=== PATIENT | female | born 1985 | race American Indian/Alaskan Native ===

== ENCOUNTER 2017-12-03 15:00 | Day surgery (SDC) | payer SELFPAY ==
[2017-12-03 08:37] LABS: Basophils % (Auto) 0.3 % (0.0-1.8); Eosinophils % (Auto) 0.1 % (0.0-4.3); Hematocrit 38.9 % (30.3-42.9); Lymphocytes # (Auto) 1.1 K/mm3 (1.2-5.4); Lymphocytes % (Auto) 8.8 % (13.4-35.0); Mean Corpuscular HGB Conc 33 % (30-34); Mean Corpuscular Hemoglobin 31 pg (28-32); Mean Corpuscular Volume 94 fl (79-97); Monocytes # (Auto) 0.2 K/mm3 (0.0-0.8); Monocytes % (Auto) 1.2 % (0.0-7.3); Platelet Count 170 K/mm3 (140-440); Red Blood Count 4.16 M/mm3 (3.65-5.03); Red Cell Distribution Width 14.1 % (13.2-15.2)
--- NOTE | 2017-12-03 08:41 | Emergency Department Report ---
ED Female HPI - General Chief complaint: Vaginal Bleeding Stated complaint: EXCESSIVE BLEEDING Time Seen by Provider: 12/03/17 08:38 Source: patient Mode of arrival: Ambulatory Limitations: Language Barrier - History of Present Illness Initial comments: psychiatric arnp: [id number] This is a 32-year-old female who is 3, para 2, last menstrual period is July 31. Her adobe block maker is with the [facility]. Patient reports that she was recently diagnosed with demise, and prescribed Cytotec. She took the Cytotec as directed. She reports crampy lower abdominal discomfort, vaginal bleeding, believes that she has used a box of pads in the past day or 2. She describes lightheadedness and generalized weakness. She denies urinary symptoms. She endorses vaginal bleeding. Her symptoms are constant. They worsened with physical exertion and decreased with rest. They do not radiate anywhere. MD Complaint: vaginal bleeding, pelvic pain -: Gradual Radiation: suprapubic Severity: moderate Quality: cramping, other Improves with: other Worsens with: other Are you Now?: Yes Associated Symptoms: vaginal bleeding, abdominal pain, nausea/vomiting, weakness. denies: vaginal discharge, fever/chills, headaches, loss of appetite , dysuria, hematuria, rash, seizure - Related Data Sexually active: Yes Previous Rx's Medication Instructions Recorded Last Taken Type Acetaminophen [Tylenol Arthritis] 650 mg PO Q6HR PRN #30 tablet.er 12/03/17 Unknown Rx Ibuprofen [Motrin] 600 mg PO Q8H PRN #30 tablet 12/03/17 Unknown Rx Ondansetron [Zofran Odt] 4 mg PO Q8HR PRN #20 tab.rapdis 12/03/17 Unknown Rx Allergies Allergy/AdvReac Type Severity Reaction Status Date / Time No Known Allergies Allergy Unverified 12/03/17 07:53 ED Review of Systems ROS: Stated complaint: EXCESSIVE BLEEDING Other details as noted in HPI Comment: All other systems reviewed and negative ED Past Medical Hx - Past Medical History Previous Medical History?: No - Surgical History Additional Surgical History: C/S - Social History Smoking Status: Never Smoker Substance Use Type: None - Medications Home Medications: Home Medications Medication Instructions Recorded Confirmed Last Taken Type Acetaminophen [Tylenol Arthritis] 650 mg PO Q6HR PRN #30 tablet.er 12/03/17 Unknown Rx Ibuprofen [Motrin] 600 mg PO Q8H PRN #30 tablet 12/03/17 Unknown Rx Ondansetron [Zofran Odt] 4 mg PO Q8HR PRN #20 tab.rapdis 12/03/17 Unknown Rx ED Physical Exam - General Limitations: Language Barrier General appearance: alert, in no apparent distress - Head Head exam: Present: atraumatic, normocephalic - Eye Eye exam: Present: normal appearance, EOMI. Absent: nystagmus - ENT ENT exam: Present: normal exam, normal orophraynx, mucous membranes moist, normal external ear exam - Neck Neck exam: Present: normal inspection, full ROM. Absent: tenderness, meningismus - Respiratory Respiratory exam: Present: normal lung sounds bilaterally. Absent: respiratory distress - Cardiovascular Cardiovascular Exam: Present: normal rhythm, tachycardia, normal heart sounds. Absent: systolic murmur, diastolic murmur, rubs, gallop - GI/Abdominal GI/Abdominal exam: Present: soft, tenderness (there is suprapubic tenderness. There is no right lower quadrant tenderness, rebound or guarding.), normal bowel sounds. Absent: distended, guarding, rebound, rigid - External exam: Present: normal external exam Speculum exam: Present: normal speculum exam, vaginal bleeding, tissue, other ( escorted by nurse Ernestine Segura) - Extremities Exam Extremities exam: Present: normal inspection, full ROM, normal capillary refill , other (2+ pulses noted in the bilateral upper, lower extremities. Compartments soft. No long bony tenderness. The pelvis is stable.). Absent: tenderness, pedal edema, joint swelling, calf tenderness - Back Exam Back exam: Present: normal inspection, full ROM. Absent: tenderness, CVA tenderness (R), paraspinal tenderness, vertebral tenderness - Neurological Exam Neurological exam: Present: alert, normal gait, other (Extraocular movements intact. Tongue midline. No facial droop. Facial sensation intact to light touch in the V1, V2, V3 distribution bilaterally. 5 and 5 strength in 4 extremities.. Sensation is intact to light touch in 4 extremities.). Absent: motor sensory deficit - Psychiatric Psychiatric exam: Present: anxious - Skin Skin exam: Present: warm, dry, intact, normal color. Absent: rash ED Course Vital Signs 12/03/17 12/03/17 07:53 11:08 Temperature 97.9 F Pulse Rate 124 H Pulse Rate [ 88 Lying] Respiratory 16 Rate Blood Pressure 126/75 Blood Pressure 98/59 [Lying] O2 Sat by Pulse 99 Oximetry ED Medical Decision Making - Lab Data Result diagrams: 12/03/17 08:06 12/03/17 09:17 Vital Signs 12/03/17 12/03/17 07:53 11:08 Temperature 97.9 F Pulse Rate 124 H Pulse Rate [ 88 Lying] Respiratory 16 Rate Blood Pressure 126/75 Blood Pressure 98/59 [Lying] O2 Sat by Pulse 99 Oximetry Lab Results 12/03/17 12/03/17 12/03/17 Range/Units 08:06 08:06 08:06 WBC 12.5 H (4.5-11.0) K/mm3 RBC 4.16 (3.65-5.03) M/mm3 Hgb 13.0 (10.1-14.3) gm/dl Hct 38.9 (30.3-42.9) % MCV 94 (79-97) fl MCH 31 (28-32) pg MCHC 33 (30-34) % RDW 14.1 (13.2-15.2) % Plt Count 170 (140-440) K/mm3 Lymph % (Auto) 8.8 L (13.4-35.0) % [place] % (Auto) 1.2 (0.0-7.3) % Eos % (Auto) 0.1 (0.0-4.3) % Baso % (Auto) 0.3 (0.0-1.8) % Lymph # 1.1 L (1.2-5.4) K/mm3 [place] # 0.2 (0.0-0.8) K/mm3 Eos # 0.0 (0.0-0.4) K/mm3 Baso # 0.0 (0.0-0.1) K/mm3 Seg Neutrophils % 89.6 H (40.0-70.0) % Seg Neutrophils # 11.2 H (1.8-7.7) K/mm3 PT (12.2-14.9) Sec. INR (0.87-1.13) Sodium (137-145) mmol/L Potassium (3.6-5.0) mmol/L Chloride (98-107) mmol/L Carbon Dioxide (22-30) mmol/L Anion Gap mmol/L BUN (7-17) mg/dL Creatinine (0.7-1.2) mg/dL Estimated GFR ml/min BUN/Creatinine Ratio % Glucose (65-100) mg/dL Calcium (8.4-10.2) mg/dL HCG, Quant 14307 H (0-4) mIU/mL Blood Type O POSITIVE Antibody Screen Negative 12/03/17 12/03/17 Range/Units 09:17 09:17 WBC (4.5-11.0) K/mm3 RBC (3.65-5.03) M/mm3 Hgb (10.1-14.3) gm/dl Hct (30.3-42.9) % MCV (79-97) fl MCH (28-32) pg MCHC (30-34) % RDW (13.2-15.2) % Plt Count (140-440) K/mm3 Lymph % (Auto) (13.4-35.0) % [place] % (Auto) (0.0-7.3) % Eos % (Auto) (0.0-4.3) % Baso % (Auto) (0.0-1.8) % Lymph # (1.2-5.4) K/mm3 [place] # (0.0-0.8) K/mm3 Eos # (0.0-0.4) K/mm3 Baso # (0.0-0.1) K/mm3 Seg Neutrophils % (40.0-70.0) % Seg Neutrophils # (1.8-7.7) K/mm3 PT 14.8 (12.2-14.9) Sec. INR 1.10 (0.87-1.13) Sodium 133 L (137-145) mmol/L Potassium 4.5 (3.6-5.0) mmol/L Chloride 98.7 (98-107) mmol/L Carbon Dioxide 17 L (22-30) mmol/L Anion Gap 22 mmol/L BUN 14 (7-17) mg/dL Creatinine 0.4 L (0.7-1.2) mg/dL Estimated GFR > 60 ml/min BUN/Creatinine Ratio 35 % Glucose 133 H (65-100) mg/dL Calcium 8.6 (8.4-10.2) mg/dL HCG, Quant (0-4) mIU/mL Blood Type Antibody Screen - EKG Data -: EKG Interpreted by Sd EKG shows normal: sinus rhythm, axis, QRS complexes, ST-T waves - EKG Data When compared to previous EKG there are: previous EKG unavailable Interpretation: normal EKG - Radiology Data Radiology results: report reviewed, image reviewed Referring Physician: KRISTIE WILL Patient Name: CALOS CARMEN Date of : 1985 Sex: Female Report Date: 2017-12-03 Report Status: Finalized Findings [facility] [address] [place] [address] Ultrasound Report Signed Patient: CALOS CARMEN MR#: [id number] : 1985 Acct:[id number] Age/Sex: 32 / F ADM Date: 12/03/17 Loc: ED Attending Dr: Ordering Physician: KRISTIE WILL MD Date of Service: 12/03/17 Procedure(s): US OB <= 14 weeks fetus Accession Number(s): [id number] cc: KRISTIE WILL MD ULTRASOUND OB LESS THAN 14 WEEKS FETUS History: Vaginal bleeding Findings: Transabdominal imaging was performed. The uterus measures 13 x 5 x 7 cm. No obvious uterine fibroids. No intrauterine gestational sac or heart tones could be demonstrated. The endometrium is thickened up to 2 cm and contains debris and fluid. The right ovary is unremarkable measuring 4.3 x 1.8 x 3.4 cm. The left ovary measures 3.3 x 1.6 x 1.7 cm and contains a 2.2 cm cyst. No pelvic fluid collection. Impression: No intrauterine is demonstrated. The endometrial stripe is complex and thickened up to 2 cm. Spontaneous with retained products of conception should be considered. Transcribed By: TTR Dictated By: KAREN BRASWELL JR, MD Electronically Authenticated By: KAREN BRASWELL JR, MD Signed Date/Time: 12/03/17 1102 - Medical Decision Making Differential diagnosis, including but not limited to: Inevitable miscarriage, demise, orthostasis, dehydration Assessment and plan: 32-year-old female with demise. On her gynecologic examination, she has clots and there is a sac being extruded from the cervix. Patient is already taking Cytotec. Hemoglobin, hematocrit within appropriate limits, and type and screen is Rh+. However, the patient is very tachycardic and orthostatic. Case is discussed with adobe block maker, Dr. Jimbo Hernandez, he is going to evaluate the patient for probable dilatation and curettage. Critical care attestation.: If time is entered above; I have spent that time in minutes in the direct care of this critically ill patient, excluding procedure time. ED Disposition Clinical Impression: Miscarriage Disposition: DC-09 OP ADMIT IP TO THIS HOSP Is pt being admited?: Yes Does the pt Need Aspirin: No Condition: Stable Instructions: Spontaneous Miscarriage (ED) Additional Instructions: Rest, and avoid heavy lifting. Avoid strenuous physical activities. Take the pain medication, nausea medication as directed. To not have sex until cleared by a adobe block maker. Follow-up with a adobe block maker within the next week. Patient is currently experiencing normal expected symptoms of a miscarriage. Return to the ER right away with new pain, worsened pain, migration of pain, bleeding more than 2 pads soaked per hour, lightheadedness, loss of consciousness, severe pain. Descanse y evite levantar objetos pesados. Evite actividades fsicas extenuantes. [place] el medicamento para el dolor, los medicamentos para las nuseas segn las indicaciones. No tener relaciones sexuales hasta que sea aprobado por un gineclogo. [place] un seguimiento con un gineclogo dentro de la prxima semana. El paciente actualmente est experimentando los sntomas normales esperados de un aborto espontneo. Regrese a la modesta de urgencias de inmediato con dolor nuevo, dolor empeorado, migracin de dolor, sangrado de ms de 2 compresas empapadas por hora, aturdimiento, prdida del conocimiento, dolor intenso. Prescriptions: Acetaminophen [Tylenol Arthritis] 650 mg PO Q6HR PRN #30 tablet.er PRN Reason: Pain Ibuprofen [Motrin] 600 mg PO Q8H PRN #30 tablet PRN Reason: Pain Ondansetron [Zofran Odt] 4 mg PO Q8HR PRN #20 tab.rapdis PRN Reason: Nausea Referrals: [facility]IMARY [facility]ARE, [Primary Care Provider] - 3-5 Days [facility] [Provider Group] - 3-5 Days [facility] [Provider Group] - 3-5 Days [facility] [Provider Group] - 3-5 Days
[2017-12-03 09:53] LABS: BUN/Creatinine Ratio 35; Blood Urea Nitrogen 14 mg/dL (7-17); Calcium 8.6 mg/dL (8.4-10.2); Hemolysis Index 25
[2017-12-03 10:56] LABS: INR 1.1 (0.87-1.13)
--- NOTE | 2017-12-03 11:09 | Ultrasound Report ---
ULTRASOUND OB LESS THAN 14 WEEKS FETUS History: Vaginal bleeding Findings: Transabdominal imaging was performed. The uterus measures 13 x 5 x 7 cm. No obvious uterine fibroids. No intrauterine gestational sac or heart tones could be demonstrated. The endometrium is thickened up to 2 cm and contains debris and fluid. The right ovary is unremarkable measuring 4.3 x 1.8 x 3.4 cm. The left ovary measures 3.3 x 1.6 x 1.7 cm and contains a 2.2 cm cyst. No pelvic fluid collection. Impression: No intrauterine is demonstrated. The endometrial stripe is complex and thickened up to 2 cm. Spontaneous with retained products of conception should be considered.
--- NOTE | 2017-12-03 13:08 | Short Stay Summary ---
Short Stay Documentation Date of service: 12/03/17 Narrative H&P: Pt is a 32-year-old female LMP 07/31/17 was recently diagnosed with demise, and prescribed Cytotec at [facility]. She took the Cytotec as directed and reported crampy lower abdominal pain, vaginal bleeding, lightheadedness and generalized weakness which worsened with physical exertion and decreased with rest. Pelvic u/s showed The uterus measures 13 x 5 x 7 cm. No obvious uterine fibroids. No intrauterine gestational sac or heart tones could be demonstrated. The endometrium is thickened up to 2 cm and contains debris and fluid. She is currently bleeding and will therefore be admitted for a D&C due to Incomplete . - History Principal diagnosis: Incomplete H&P: obtained from office Past Medical History: No medical history Past Surgical History: Social history: no significant social history, - Allergies and Medications Current Medications: Allergies No Known Allergies Allergy (Unverified 12/03/17 07:53) Home Medications Medication Instructions Recorded Confirmed Last Taken Type Acetaminophen [Tylenol Arthritis] 650 mg PO Q6HR PRN #30 tablet.er 12/03/17 Unknown Rx Ibuprofen [Motrin] 600 mg PO Q8H PRN #30 tablet 12/03/17 Unknown Rx Ondansetron [Zofran Odt] 4 mg PO Q8HR PRN #20 tab.rapdis 12/03/17 Unknown Rx - Physical exam General appearance: mild distress Integumentary: no rash HEENT: Atraumatic Lungs: Clear to auscultation Breasts: deferred Heart: Regular rate Gastrointestinal: normal Female Genitourinary: deferred Rectal Exam: deferred Extremities: no ischemia Neurological: Normal gait, Normal speech - Brief post op/procedure progress note Date of procedure: 12/03/17 Pre-op diagnosis: Incomplete Post-op diagnosis: same Procedure: D&C Anesthesia: MAC Findings: A 12-14 weeks size uterus with large amounts of POC @ cervical os. Surgeon: KAREN QUINTANA Estimated blood loss: 50-100ml Pathology: list (POC) Specimen disposition: to lab Condition: stable - Hospital course Hospital course: Unremarkable. - Disposition Condition at discharge: Good Disposition: DC- TO HOME OR SELFCARE - Discharge Diagnoses (1) Incomplete Status: Resolved Short Stay Discharge Plan Activity: no restrictions Diet: regular Additional Instructions: Rest, and avoid heavy lifting. Avoid strenuous physical activities. Take the pain medication, nausea medication as directed. To not have sex until cleared by a claim clerk. Follow-up with a claim clerk within the next week. Patient is currently experiencing normal expected symptoms of a miscarriage. Return to the ER right away with new pain, worsened pain, migration of pain, bleeding more than 2 pads soaked per hour, lightheadedness, loss of consciousness, severe pain. Descanse y evite levantar objetos pesados. Evite actividades fsicas extenuantes. [place] el medicamento para el dolor, los medicamentos para las nuseas segn las indicaciones. No tener relaciones sexuales hasta que sea aprobado por un gineclogo. [place] un seguimiento con un gineclogo dentro de la prxima semana. El paciente actualmente est experimentando los sntomas normales esperados de un aborto espontneo. Regrese a la modesta de urgencias de inmediato con dolor nuevo, dolor empeorado, migracin de dolor, sangrado de ms de 2 compresas empapadas por hora, aturdimiento, prdida del conocimiento, dolor intenso. Follow up with: [facility] [Provider Group] - 3-5 Days [facility], [Primary Care Provider] - 3-5 Days Prescriptions: Acetaminophen [Tylenol Arthritis] 650 mg PO Q6HR PRN #30 tablet.er PRN Reason: Pain Doxycycline [Vibramycin CAP] 100 mg PO Q12HR #14 capsule Ibuprofen [Motrin] 600 mg PO Q8H PRN #30 tablet PRN Reason: Pain Methylergonovine [Methergine] 0.2 mg PO Q8HR #6 tablet Ondansetron [Zofran Odt] 4 mg PO Q8HR PRN #20 tab.rapdis PRN Reason: Nausea
[~2017-12-03 15:00] MED LIST: ANCEF/STERILE WATER 2 GM/20 ML 2 GM/20 ML SYRINGE IV NR; DEMEROL IV PRN; DILAUDID IV PRN; LACTATED RINGERS 1,000 ML IV SCH; NACL 0.9% 1000 ML 2,000 ML IV ONE; NACL 0.9% 1000 ML 2,000 ML ONE; SUBLIMAZE IV ONE; TORADOL IV PRN; VERSED IV NR; XYLOCAINE MPF 2% ONE; ZOFRAN IV ONE; ZOFRAN IV PRN
[2017-12-03] MEDS ORDERED: SUBLIMAZE ONE (15:01)
[2017-12-03] MEDS ORDERED: DIPRIVAN 10 MG/ML IV ONE (15:01)
--- NOTE | 2017-12-03 15:09 | Anesthesia Day of Surgery ---
Anesthesia Day of Surgery - Day of Surgery Patient Examined: Yes Patient H&P Reviewed: Yes Patient is NPO: Yes
--- NOTE | 2017-12-03 15:10 | Anesthesia Consultation ---
Anesthesia Consult and Med Hx Date of service: 12/03/17 - Airway Anesthetic Teeth Evaluation: Good ROM Head & Neck: Adequate Mental/Hyoid Distance: Adequate Mallampati Class: Class II Intubation Access Assessment: Probably Good - Pulmonary Exam CTA: Yes - Cardiac Exam Cardiac Exam: RRR - Pre-Operative Health Status ASA Pre-Surgery Classification: ASA2 Proposed Anesthetic Plan: General (GERD controlled)
[2017-12-03] MEDS ORDERED: LACTATED RINGERS 1,000 ML ONE (18:30)
[2017-12-03] MEDS ORDERED: ANCEF ONE ×2 (18:39)
[2017-12-03] MEDS ORDERED: ZOFRAN ONE (18:48)
[2017-12-03] MEDS ORDERED: TORADOL ONE (18:49)
--- NOTE | 2017-12-03 19:14 | Operative Report ---
Operative Report Operative Report: PREOPERATIVE DIAGNOSIS: Incomplete POSTOPERATIVE DIAGNOSIS: Same OPERATIVE PROCEDURE: Dilatation and curettage. SURGEON: Kiko Hernandez MD ANESTHESIA: Gen. mask ANESTHESIOLOGIST: Dr. Hernandes ESTIMATED BLOOD LOSS: 150 mls FINDINGS: A 12-14 week size uterus with a large amounts of products of conception at the cervical os COMPLICATIONS: None COUNTS: Correct x3. PROCEDURE: After the patient was correctly identified as the patient, and after general anesthesia was administered, the patient was prepped and draped in the usual sterile fashion and placed in dorsal lithotomy position. First, the bladder was emptied using a straight catheter. Next, a speculum was placed in the vaginal vault and a large gestational sac was seen at the cervical os. It was grasped using ring forceps and sent to pathology. The anterior lip of the cervix was grasped using the ring forceps and the uterus was sounded to 12 cm. A 12 mm vaccurette was used to suction blood and products of conception from the uterine cavity. After all the products of conception were removed, the procedure was considered complete. All instruments were removed from the vagina. The patient tolerated the procedure well and was transferred to the recovery room in stable condition.
[2017-12-03] MEDS ORDERED: NACL 0.9% 1000 ML 1,000 ML ONE (20:20)
[2017-12-03 20:48] VITALS: BP 94/41
== END 2017-12-03 20:20 | disposition home or self-care (01) ==
LOC: OR 15:00
PROVIDERS: ATTEND Obstetrics & Gynecology
DX: O03.4 Incomplete spontaneous abortion without complication (principal); Z3A.12 12 weeks gestation of pregnancy
CPT/HCPCS: 36415; 59812; 76801; 80048; 84702; 85025; 85610; 86850; 86900; 86901; 88305; 93005; 93010; 96361; 96374; 96375; 99284; J0690; J1885; J2405; J2704; J3010; J7030; J7120

== ENCOUNTER 2020-06-25 08:16 | Emergency (ER) | payer SELFPAY ==
[2020-06-25 09:16] LABS: Hemoglobin 14.3 gm/dl (10.1-14.3); Mean Corpuscular HGB Conc 34 % (30-34); Mean Corpuscular Volume 88 fl (79-97); Platelet Count 146 K/mm3 (140-440); Red Blood Count 4.75 M/mm3 (3.65-5.03); Red Cell Distribution Width 15.4 % (13.2-15.2)
[2020-06-25 09:33] LABS: Blood Urea Nitrogen 10 mg/dL (7-17); Calcium 9.1 mg/dL (8.4-10.2); Hemolysis Index 2
[2020-06-25 09:40] LABS: Bilirubin,Urine NEG (Negative); Blood,Urine MOD (Negative); Color,Urine Yellow (Yellow); Mucus,Urine FEW /HPF; Urobilinogen,Urine < 2.0 mg/dL (<2.0)
[2020-06-25 09:46] LABS: BUN/Creatinine Ratio 17
--- NOTE | 2020-06-25 10:57 | Emergency Department Report ---
ED HPI - General Chief complaint: Urogenital-Female Stated complaint: PREG WKS ? BLEEDING Time Seen by Provider: 06/25/20 09:54 Source: patient Mode of arrival: Ambulatory Limitations: Language Barrier - History of Present Illness Initial comments: 34-year-old female who is morbid obese presents to the emergency room complaining of vaginal spotting since yesterday. Patient reports she took home test x2 weeks ago and it was positive. Patient is 4 para 2 with 1 miscarriage. Patient states her last miscarriage was 12/02/2017. Last menstrual period was 03/14/2020. Patient admits to nausea no vomiting. She reports this a little bit of abdominal pain. She does admit to a little headache. She denies any dysuria no hematuria. She has not followed up with the PRESSURE TEST OPERATOR. She was followed by [facility] for her prior and delivered here at the hospital. Patient states she is already taking vitamins. She has no known drug allergies. MD Complaint: vaginal bleeding Onset/Timin -: days(s) Location: pelvis Severity scale (0 -10): 1 Consistency: intermittent Improves with: none Worsens with: none Associated symptoms: nausea/vomiting (Nausea no vomiting), vaginal bleeding (Spotting), headache. denies: vaginal discharge, dysuria, vision changes, malaise, rash, shortness of breath, weakness Vaginal bleeding: light :: Yes Number of weeks : 12 OB History - Current : no complications OB History - Previous Pregnancies: miscarriage [facility]: none - Related Data : 4 Para: 2 Ab: 1 (Miscarriage 12/02/2017) Previous Rx's Medication Instructions Recorded Last Taken Type Acetaminophen [Tylenol Arthritis] 650 mg PO Q6HR PRN #30 tablet.er 12/03/17 Unk nown Rx DOXYCYCLINE Hyclate [Vibramycin 100 mg PO Q12HR #14 capsule 12/03/17 Unknown Rx CAP] Ibuprofen [Motrin] 600 mg PO Q8H PRN #30 tablet 12/03/17 Unknown Rx Methylergonovine [Methergine] 0.2 mg PO Q8HR #6 tablet 12/03/17 Unknown Rx Ondansetron [Zofran Odt] 4 mg PO Q8HR PRN #20 tab.rapdis 12/03/17 Unknown Rx Allergies Allergy/AdvReac Type Severity Reaction Status Date / Time No Known Allergies Allergy Verified 06/25/20 08:20 ED Review of Systems ROS: Stated complaint: PREG WKS ? BLEEDING Other details as noted in HPI Comment: All other systems reviewed and negative ED Past Medical Hx - Past Medical History Previous Medical History?: No - Surgical History Past Surgical History?: No Additional Surgical History: C/S - Social History Smoking Status: Never Smoker Substance Use Type: None - Medications Home Medications: Home Medications Medication Instructions Recorded Confirmed Last Taken Type Acetaminophen [Tylenol Arthritis] 650 mg PO Q6HR PRN #30 tablet.er 12/03/17 Unknown Rx DOXYCYCLINE Hyclate [Vibramycin 100 mg PO Q12HR #14 capsule 12/03/17 Unknown Rx CAP] Ibuprofen [Motrin] 600 mg PO Q8H PRN #30 tablet 12/03/17 Unknown Rx Methylergonovine [Methergine] 0.2 mg PO Q8HR #6 tablet 12/03/17 Unknown Rx Ondansetron [Zofran Odt] 4 mg PO Q8HR PRN #20 tab.rapdis 12/03/17 Unknown Rx ED Physical Exam - General Limitations: Language Barrier General appearance: alert, in no apparent distress - Head Head exam: Present: atraumatic, normocephalic - Eye Eye exam: Present: normal appearance - ENT ENT exam: Present: mucous membranes moist - Neck Neck exam: Present: normal inspection - Respiratory Respiratory exam: Present: normal lung sounds bilaterally. Absent: respiratory distress - Cardiovascular Cardiovascular Exam: Present: regular rate, normal rhythm. Absent: systolic murmur, diastolic murmur, rubs, gallop - GI/Abdominal GI/Abdominal exam: Present: soft, normal bowel sounds - Extremities Exam Extremities exam: Present: normal inspection - Back Exam Back exam: Present: normal inspection - Neurological Exam Neurological exam: Present: alert, oriented X3 - Psychiatric Psychiatric exam: Present: normal affect, normal mood - Skin Skin exam: Present: warm, dry, intact, normal color. Absent: rash ED Course Vital Signs 06/25/20 08:19 Temperature 98.1 F Pulse Rate 96 H Respiratory 16 Rate Blood Pressure 147/90 O2 Sat by Pulse 100 Oximetry ED Medical Decision Making - Lab Data Result diagrams: 06/25/20 08:34 06/25/20 08:34 Laboratory Tests 06/25/20 06/25/20 06/25/20 08:34 08:34 08:34 WBC 6.6 RBC 4.75 Hgb 14.3 Hct 42.0 MCV 88 MCH 30 MCHC 34 RDW 15.4 H Plt Count 146 Sodium Potassium Chloride Carbon Dioxide Anion Gap BUN Creatinine Estimated GFR BUN/Creatinine Ratio Glucose Calcium HCG, Quant 39528 H Urine Color Urine Turbidity Urine pH Ur Specific [place] Urine Protein Urine Glucose (UA) Urine Ketones Urine Blood Urine Nitrite Urine Bilirubin Urine Urobilinogen Ur Leukocyte Esterase Urine WBC (Auto) Urine RBC (Auto) U Epithel Cells (Auto) Urine Mucus Blood Type O POSITIVE 06/25/20 06/25/20 08:34 09:02 WBC RBC Hgb Hct MCV MCH MCHC RDW Plt Count Sodium 138 Potassium 4.1 Chloride 102.8 Carbon Dioxide 25 Anion Gap 14 BUN 10 Creatinine 0.6 Estimated GFR > 60 BUN/Creatinine Ratio 17 Glucose 137 H Calcium 9.1 HCG, Quant Urine Color Yellow Urine Turbidity Slightly-cloudy Urine pH 6.0 Ur Specific [place] 1.020 Urine Protein 30 mg/dl Urine Glucose (UA) Neg Urine Ketones Neg Urine Blood Mod Urine Nitrite Neg Urine Bilirubin Neg Urine Urobilinogen < 2.0 Ur Leukocyte Esterase Neg Urine WBC (Auto) 2.0 Urine RBC (Auto) 63.0 U Epithel Cells (Auto) 6.0 Urine Mucus Few Blood Type - Radiology Data Radiology results: report reviewed Patient: CALOS FERRARI MR#: [id number] : 1985 Acct:[id number] Age/Sex: 34 / F ADM Date: 06/25/20 Loc: ED Attending Dr: Ordering Physician: ТАТЬЯНА NIETO Date of Service: 06/25/20 Procedure(s): US OB transvaginal Accession Number(s): [id number] cc: ТАТЬЯНА NIETO ULTRASOUND OBSTETRIC Indication: Vaginal spotting Findings: Transabdominal and transvaginal imaging is performed. There is a gestational sac with pole and yolk sac identified within the uterus. Gestational sac size would correlate to a 7 week 3 day gestation. Corinne-rump length is difficult to measure but appears to be approximately 4.2 mm correlating to a 6 week 1 day gestation. No heart tones are identified. There is a small subchorionic bleed. Right ovary measures 3.2 cm and contains a 1.6 cm solid-appearing nodule which may represent a hemorrhagic cyst. This will need to be followed. The left ovary measures 2.7 cm and is unremarkable. Impression: Intrauterine is noted. No heart tones are identified on this study. Gestational sac size would correlate to a 7 week 3 day gestation. pole is difficult to evaluate but appears to measure approximately 4.2 mm correlating to a 6 week 1 day gestation. There is a subchorionic bleed. Correlation with serum beta hCG levels recommended. Follow-up imaging should be performed as clinically warranted. There is a 1.6 cm nodule in the right ovary which may represent a hemorrhagic cyst but I cannot exclude the possibility of a solid ovarian lesion.. Follow-up ultrasound is recommended in 6-8 weeks to reevaluate. Signer Name: Jac Polo MD Signed: 06/25/2020 12:27 PM Workstation Name: [id number] Transcribed By: SS Dictated By: Jac Polo MD Electronically Authenticated By: Jac Polo MD Signed Date/Time: 06/25/201226 DD/ 21 TD/TT: - Medical Decision Making 34-year-old female who is morbid obese presents to the emergency room complaining of vaginal spotting since yesterday. Patient reports she took home test x2 weeks ago and it was positive. Patient is 4 para 2 with 1 miscarriage. Patient states her last miscarriage was 12/02/2017. Last menstrual period was 03/14/2020. Patient admits to nausea no vomiting. She reports this a little bit of abdominal pain. She does admit to a little headache. She denies any dysuria no hematuria. She has not followed up with the PRESSURE TEST OPERATOR. [facility] and delivered here at the hospital. Patient states she is already taking vitamins. She has no known drug allergies. Review of chart patient had a spontaneous with a D&C done on December 03, [address] Kiko Hernandez. Ultrasound today shows there is gestational sac about 7 weeks and 3 days with a pole but no heart rate. And also shows that there is so chronic bleed and a right ovarian nodule versus lesion. [place] [address]. I recommend patient to follow-up with an PRESSURE TEST OPERATOR in 72 hours to have a repeat of her hCG in 2 weeks to have a repeat ultrasound. It was also noted that patient had elevated blood pressure in triage of 147/90. Blood pressure rechecked by ER nurse was 113 over 69. Critical care attestation.: If time is entered above; I have spent that time in minutes in the direct care of this critically ill patient, excluding procedure time. ED Disposition Clinical Impression: Subchorionic hemorrhage in first trimester, Lesion of right ovary, Threatened miscarriage in early , Severe obesity (BMI >= 40), Advanced maternal age during in first trimester Disposition: DC-01 TO HOME OR SELFCARE Is pt being admited?: No Does the pt Need Aspirin: No Condition: Stable Instructions: Vaginal Bleeding During , First Trimester, Vaginal Bleeding During , First Trimester, [id number], Threatened Miscarriage, [id number], Obesity, Adult, [id number], Subchorionic Hematoma Additional Instructions: Ultrasound shows that you are 7 weeks and 3 days . Also shows that there is no heartbeat that they are able to identify at this time. There is a right ovarian lesion versus nodule. It is important that she follow-up with an PRESSURE TEST OPERATOR in 72 hours to have a repeat blood work to check your hormonal level. I also recommend to have a repeat ultrasound in 2 weeks or what ever the PRESSURE TEST OPERATOR recommends. Continue with your vitamins drink plenty of fluids and no strenuous activities such as working out exercise and lifting heavy objects. You need to be on bed rest until you follow-up with PRESSURE TEST OPERATOR. La ecografa muestra que est embarazada de 7 semanas y 3 leblanc. Lorrie muestra que no hay latidos del corazn que prateek capaces de identificar en bassam momento. Hay shanthi lesin ovrica derecha versus ndulo. Es importante que uriel un seguimiento con un obstetra/gineclogo en 72 horas para tener un anlisis de caity repetido para comprobar [place] nivel hormonal. Lorrie recomiendo hacerme shanthi ecografa repetida en 2 semanas o lo que el obstetra/gineclogo recomienda. Contine con paula vitaminas prenatales beban muchos lquidos y sin actividades extenuantes, kristie hacer ejercicio y levantar objetos pesados. Debe estar en reposo en cama hasta que uriel un seguimiento con obstetra/gineclogo. Referrals: PRIMARY CARE, [Primary Care Provider] - 3-5 Days [facility] [Provider Group] - 3-5 Days [facility] [Provider Group] - 3-5 Days [facility] [Provider Group] - 3-5 Days Forms: Work/School Release Form(ED)
--- NOTE | 2020-06-25 12:31 | Ultrasound Report ---
ULTRASOUND OBSTETRIC Indication: Vaginal spotting Findings: Transabdominal and transvaginal imaging is performed. There is a gestational sac with pole and yolk sac identified within the uterus. Gestational sac size would correlate to a 7 week 3 day gestati on. Edmonson-rump length is difficult to measure but appears to be approximately 4.2 mm correlating to a 6 week 1 day gestation. No heart tones are identified. There is a small subchorionic bleed. Right ovary measures 3.2 cm and contains a 1.6 cm solid-appearing nodule which may represent a hemorr hagic cyst. This will need to be followed. The left ovary measures 2.7 cm and is unremarkable. Impression: Intrauterine is noted. No heart tones are identified on this study. Gestational sac s ize would correlate to a 7 week 3 day gestation. pole is difficult to evaluate but appears to m easure approximately 4.2 mm correlating to a 6 week 1 day gestation. There is a subchorionic bleed. C orrelation with serum beta hCG levels recommended. Follow-up imaging should be performed as clinicall y warranted. There is a 1.6 cm nodule in the right ovary which may represent a hemorrhagic cyst but I cannot exclu de the possibility of a solid ovarian lesion.. Follow-up ultrasound is recommended in 6-8 weeks to re evaluate. Signer Name: Jac Polo MD Signed: 06/25/2020 12:27 PM Workstation Name: [id number]
[2020-06-25 12:54] VITALS: BP 113/69
== END 2020-06-25 13:16 | disposition home or self-care (01) ==
LOC: ED 08:16
DX: O41.8X10 Other specified disorders of amniotic fluid and membranes, first trimester, not applicable or unspecified (principal); O20.0 Threatened abortion; O99.211 Obesity complicating pregnancy, first trimester; N83.9 Noninflammatory disorder of ovary, fallopian tube and broad ligament, unspecified; O26.891 Other specified pregnancy related conditions, first trimester; Z98.890 Other specified postprocedural states; Z79.899 Other long term (current) drug therapy
CPT/HCPCS: 36415; 76802; 76817; 80048; 81001; 84702; 85027; 86900; 86901